=== PATIENT | male | born 1995 | race Caucasian/White ===

== ENCOUNTER 2016-10-30 19:15 | Emergency (ER) | payer SELFPAY ==
[2016-10-30] MEDS ORDERED: Bacitracin Zinc 1 Packet ONE (20:11)
--- NOTE | 2016-10-30 21:18 | ERRECORD ---
[facility] EMERGENCY RECORD HPI LACERATION (19:26 [facility]) CHIEF COMPLAINT: Patient presents for evaluation of laceration to forearm, on the right, 2.6-4.0cm in length, through subcutaneous fascia, Foreign body present. HISTORIAN: History provided by patient, 21M presents after he punched a glass door and lacerated his right anterior forearm. Denies numbness or tingling distal to the injury. Denies hand pain. Last tetanus last year. MECHANISM OF INJURY: Known mechanism, Mechanism of injury: Cut or punctured by, glass, accidentally. LOCATION: Symptoms are localized. QUALITY: Laceration quality straight, Pain is sharp in nature. TIME COURSE: Sudden onset of symptoms, There has been no change in the patient's symptoms over time. ASSOCIATED WITH: Associated with bleeding, venous. RELIEVED BY: Patient's condition relieved by nothing because patient has not tried anything for relief. TETANUS: Tetanus status up to date. ROS (19:41 [facility]) CONSTITUTIONAL: Negative constitutional review of systems, Historian denies chills, denies fever. EYES: Negative eye review of systems, Historian denies eye pain, denies eye discharge, denies vision changes. ENT: Negative ears, nose, throat review of systems, Historian denies rhinorrhea, denies sore throat. CARDIOVASCULAR: Negative cardiovascular review of systems, Historian denies chest pain, denies palpitations. RESPIRATORY: Negative respiratory review of systems, Historian denies cough, denies shortness of breath. GI: Negative gastrointestinal review of systems, Historian denies abdominal pain, denies constipation, denies diarrhea, denies nausea, denies vomiting. GENITOURINARY MALE: Negative genitourinary review of systems, Historian denies dysuria, denies hematuria. MUSCULOSKELETAL: Negative musculoskeletal review of systems, Historian denies back pain, denies fall, denies injury, denies neck pain. SKIN: laceration right forearm. NEUROLOGIC: Negative neurologic review of systems, Historian denies headache. HEMO/LYMPHATIC: Normal hematologic/lymphatic system review, Historian denies abnormal blood clotting. PAST MEDICAL HISTORY (19:40 [facility]) MEDICAL HISTORY: No past medical history, No past medical history, Flu vaccine not up to date, Tetanus immunization up to date, Pneumococcal vaccine not up to date. REVIEWED 10/30/16. MALE SURGICAL HISTORY: Patient has no surgical history. REVIEWED 10/30/16. &a-1R&a+25V*p+0X*[id number]*c202B*c15G*c2P*p-0X&a-25V&a+1R Name: Madisyn Daly : 1995 M21 MedRec: [id number] AcctNum: [id number] Prepared: FriOct 30, 2016 20:39 by Interface Page 1 of 3 pMD [facility] EMERGENCY RECORD PSYCHIATRIC HISTORY: Notes: NO PREVIOUS HX. SOCIAL HISTORY: Patient denies alcohol use, Patient denies drug use, Patient currently uses tobacco, smokes cigarettes, daily, Patient has smoked for 10 years, Patient smokes 1/2 packs per day. REVIEWED 10/30/16. KNOWN ALLERGIES No Known Allergies (Unconfirmed) No Known Drug Allergies CURRENT MEDICATIONS No recorded medications VITAL SIGNS VITAL SIGNS: BP: 144/93, Pulse: 112, Resp: 20, Pain: 6, O2 sat: 99 on Room Air, Time: 10/30/2016 19:21. (19:21 MV[facility]) Temp: 98.1 (Oral), Time: 10/30/2016 19:23. (19:23 [facility]) PHYSICAL EXAM (19:41 [facility]) CONSTITUTIONAL: Vital signs reviewed, Patient afebrile, Pulse normal, Blood pressure normal, Respiratory rate normal, Patient appears non toxic, Patient appears pain free, Patient alert and oriented to person, place and time. HEAD: Head exam normal, Head exam included findings of head atraumatic, normocephalic. EYES: Eye exam normal, Eye exam included findings of eyelids normal to inspection, Pupils equally round and reactive to light, Extraocular muscles intact, no nystagmus. ENT: ENT exam normal, Ear exam normal, external ear normal, tympanic membranes normal, no bleeding, Pharynx exam normal, Uvula exam normal, Tonsil exam normal, Mouth exam normal, mucous membranes moist, teeth normal. NECK: Neck exam normal, Neck exam included findings of normal range of motion, Trachea midline, no meningeal signs, no cervical adenopathy, no tenderness. RESPIRATORY CHEST: Respiratory and chest exam normal, Respiratory exam included findings of no respiratory distress, Breath sounds clear. CARDIOVASCULAR: Cardiovascular assessment normal, Cardiovascular exam included findings of heart rate regular rate and rhythm, Heart sounds normal. ABDOMEN MALE: Abdominal exam included findings of abdomen nontender, Bowel sounds normal, no distension, no mass, no pulsatile masses, no peritoneal signs, no rigidity, no guarding, no rebound, Rovsing's sign absent. BACK: Back exam normal, Back exam included findings of normal inspection, range of motion normal, no tenderness. UPPER EXTREMITY: Upper extremity exam normal, Upper extremity exam included findings of inspection normal, Range of motion normal, Motor strength normal, Sensation intact, Radial pulse normal. &a-1R&a+25V*p+0X*w0258G*c202B*c15G*c2P*p-0X&a-25V&a+1R Name: Madisyn Daly : 1995 M21 MedRec: [id number] AcctNum: [id number] Prepared: FriOct 30, 2016 20:39 by Interface Page 2 of 3 pMD [facility] EMERGENCY RECORD LOWER EXTREMITY: Lower extremity exam normal, Lower extremity exam included findings of inspection normal, Range of motion normal, Motor strength normal, Sensation intact, Posterior tibial pulse normal, Pedal pulse normal. NEURO: Neuro exam normal, Neuro exam findings include patient oriented to person, place and time, Speech normal, Gait normal. SKIN: Skin exam normal, Skin exam included findings of skin warm, dry, and normal in color, no rash, right anterior forearm has 3.5cm full thickness skin laceration with 3 smaller wounds less than 0.5cm. No arterial injury, oozing blood.Neurovascularly intact distally. PSYCHIATRIC: Psychiatric exam normal, Normal affect. DOCTOR NOTES (20:15 [facility]) TEXT: Patient presented with forearm laceration to right arm. Tolerated repair well. possible foreign body on xray, unable to find on local wound exploration. Patient is asymptomatic, appropriate for outpatient management and follow up. PATIENT STATUS: Patient has improved since arrival to emergency department. PATIENT PLAN: The patient will be discharged, The patient will follow up with primary care physician. DATA REVIEWED: Xray data reviewed. PROBLEM LIST No recorded problems DIAGNOSIS (20:13 [facility]) FINAL: PRIMARY: laceration forearm. PRESCRIPTION No recorded prescriptions DISPOSITION PATIENT: Disposition Type: Discharge, Disposition: *Discharge Home. (20:13 [facility]) Patient left the department. (20:32 [facility]) Zimmer: ROMY=MD Cate, Patrick MVIL=CAMILLE Amaya, Sarah &a-1R&a+25V*p+0X*[id number]*c202B*c15G*c2P*p-0X&a-25V&a+1R Name: Madisyn Daly : 1995 M21 MedRec: [id number] AcctNum: [id number] Prepared: FriOct 30, 2016 20:39 by Interface Page 3 of 3 pMD MTDD
--- NOTE | 2016-10-30 21:20 | PICIS ---
[facility] EMERGENCY RECORD TRIAGE (19:23 [facility]) TRIAGE NOTES: C/O LAC TO RIGHT ARM AFTER PUNCHING A GLASS DOOR. UTD ON TETANUS. (19:23 [facility]) PATIENT: NAME: Madisyn Daly, AGE: 21, GENDER: male, : Fri1995, TIME OF GREET: FriOct 30, 2016 19:15, PREFERRED LANGUAGE: Cymro, ETHNICITY: Not or , ECODE BILLING MAP: [facility], SSN: [id number], Zip Code: [address], KG WEIGHT: 65.77, HEIGHT/LENGTH: 180.34cm, BMI: 20.22, PHONE: , , , PERSON ID: [id number], PAYMENT: [employer] Self Pay, PCP: DO GONSALES KRISTEL. (19:23 [facility]) COMPLAINT: LACERATION TO RIGHT ARM. (19:23 [facility]) ADMISSION: URGENCY: 4 Non Urgent, ADMISSION SOURCE: Home, TRANSPORT: CAR, BED: ER -03. (19:23 [facility]) ASSESSMENT: Assessment: C/O RIGHT ARM LACERATION AFTER PUNCHING GLASS DOOR. TETANUS UTD. BLEEDING CONTROLLED., Symptoms began 10/30/2016 19:38, Symptoms began 30 min ago. (19:40 [facility]) PAIN: Patient complains of pain described as, aching, Location RIGHT ARM, Pain is constant, No aggravating factors, No relieving factors. (19:40 [facility]) IMMUNIZATIONS: Flu vaccine not up to date, Tetanus immunization up to date, Pneumococcal vaccine not up to date. (19:40 [facility]) SIRS SCORING: Heart Rate 110-139 (2), Temp range 96.8-101.1 (0), respiratory rate 12-24 (0), Mental Status altered: no (0), Total SIRS Score 2. (19:40 [facility]) TREATMENTS IN PROGRESS: Bandaging, Bulky dressing in place to: RIGHT FOREARM 2INCH LAC., Bleeding controlled with bandage. (20:10 [facility]) PROVIDERS: TRIAGE NURSE: Sarah Amaya RN. (19:23 [facility]) VITAL SIGNS: BP 144/93, Pulse 112, Resp 20, Pain 6, O2 Sat 99, on Room Air, Time 10/30/2016 19:21. (19:21 [facility]) Temp 98.1, (Oral), Time 10/30/2016 19:23. (19:23 [facility]) PREVIOUS VISIT ALLERGIES: No Known Drug Allergies. (19:23 [facility]) No Known Drug Allergies. (19:40 [facility]) KNOWN ALLERGIES No Known Allergies (Unconfirmed) No Known Drug Allergies CURRENT MEDICATIONS No recorded medications VITAL SIGNS VITAL SIGNS: BP: 144/93, Pulse: 112, Resp: 20, Pain: 6, O2 sat: 99 on Room Air, Time: 10/30/2016 19:21. (19:21 [facility]) Temp: 98.1 (Oral), Time: 10/30/2016 19:23. (19:23 [facility]) NURSING ASSESSMENT: EXTREMITY UPPER (19:40 [facility]) &a-1R&a+25V*p+0X*u9937O*c202B*c15G*c2P*p-0X&a-25V&a+1R Name: Madisyn Daly Jordin : 1995 M21 MedRec: [id number] AcctNum: [id number] Prepared: FriOct 30, 2016 20:45 by Interface Page 1 of 6 pMD [facility] EMERGENCY RECORD CONSTITUTIONAL: Patient arrives ambulatory, Gait steady, History obtained from patient, Patient appears comfortable, Patient cooperative, Patient alert, Oriented to person, place and time, Skin warm, Skin dry, Skin normal in color, Mucous membranes pink, Mucous membranes moist, Patient is well-groomed, Patient complains of RIGHT ARM LACERATION, PUNCHED A GLASS DOOR. TETANUS UTD. DID NOT TAKE ANY MEDS FOR PAIN. PAIN: burning pain, to the right forearm, Onset of pain 10/30/2016 19:45, constant, on a scale 0-10 patient rates pain as 6, Pain exacerbated by nothing, Nothing has been tried to alleviate the pain. RIGHT UPPER EXTREMITY: Right upper extremity assessment findings include capillary refill less than 2 seconds, Skin color normal to hand, Skin temperature to hand warm, Distal sensation intact, Muscle tone normal, muscle strength 5, +1 edema present, radial pulse is +4, brachial pulse is +4, Inspection findings include laceration, to FOREARM, bleeding controlled. SAFETY: Side rails up, Cart/Stretcher in lowest position, Family at bedside, Call light within reach, Hospital ID band on. NURSING PROCEDURE: DISCHARGE NOTE (20:19 [facility]) DISCHARGE: Patient discharged to home, ambulating without assistance, family driving, accompanied by //partner, Summary of Care printed/ provided, Patient requested and was provided an electronic copy of Discharge Instructions, Transition record given to patient, Discharge instructions given to patient, Above person(s) verbalized understanding of discharge instructions and follow-up care. BELONGINGS: Belongings and valuables with patient at time of discharge include:. NURSING PROCEDURE: WOUND CARE (20:10 MVIL) PATIENT IDENTIFIER: Patient actively involved in identification process, Patient's identity verified by patient stating name, Patient's identity verified by hospital ID bracelet. TIMEOUT: Prior to procedure, correct patient verified by, Correct procedure verified, Correct site verified, Correct equipment utilized, Timeout not performed due to emergent nature of procedure, Physician performing procedure Dr. DR. PEREZ. WOUND CARE: Wound care indicated for wound debridement and cleansing, Wound care indicated for preparing wound for repair, Wound care indicated to promote healing, Wound site: RIGHT FOREARM, Cause of wound: PUNCHED GLASS DOOR, Local infiltration with, 1% lidocaine without epinephrine, 10 mL used, Wound irrigated with 250 mL of normal saline, Wound cleansed with normal saline, Wound repaired with sutures, by DR. PEREZ, using 2 packs of suture, PROLENE 5.0, Last tetanus shot received less than 5 years ago. FOLLOW-UP: After procedure, on a scale 0-10 patient rates pain as 6, After procedure, capillary refill less than 2 seconds, After procedure, distal circulation intact, After procedure, &a-1R&a+25V*p+0X*[id number]*c202B*c15G*c2P*p-0X&a-25V&a+1R Name: Madisyn Daly : 1995 M21 MedRec: [id number] AcctNum: [id number] Prepared: FriOct 30, 2016 20:45 by Interface Page 2 of 6 pMD [facility] EMERGENCY RECORD distal motor intact, After procedure, distal sensation intact, After procedure, distal pulses present. SAFETY: Side rails up, Cart/Stretcher in lowest position, Family at bedside, Call light within reach, Hospital ID band on. ORDER DETAILS Order Name: chart element #1, Status: Active, Time: 20:10 10/30/2016, User: System, - Ordered for: MD Perez Jason, - Entered by: CAMILLE Amaya, [facility] FriOct 30, 2016 20:10, - Quantity: 1, Order Name: chart element #4, Status: Active, Time: 20:10 10/30/2016, User: System, - Ordered for: MD Perez Jason, - Entered by: CAMILLE Amaya, [facility] FriOct 30, 2016 20:10, - Quantity: 1, Order Name: XR Forearm Rt 2 View STANDARD, Status: Active, Time: 19:25 10/30/2016, User: [employer], - Ordered for: MD Perez Jason, - Entered by: MD Perez Jason [facility] Oct 30, 2016 19:25, - Quantity: 1, Order Name: XR Forearm Rt 2 View STANDARD, Status: Active, Time: 19:34 10/30/2016, User: [employer], - Ordered for: MD Perez Jason, - Entered by: MD Perez Jason - [facility] Oct 30, 2016 19:34, - Quantity: 1. [facility] CHIEF COMPLAINT: Patient presents for evaluation of laceration to forearm, on the right, 2.6-4.0cm in length, through subcutaneous fascia, Foreign body present. HISTORIAN: History provided by patient, 21M presents after he punched a glass door and lacerated his right anterior forearm. Denies numbness or tingling distal to the injury. Denies hand pain. Last tetanus last year. MECHANISM OF INJURY: Known mechanism, Mechanism of injury: Cut or punctured by, glass, accidentally. LOCATION: Symptoms are localized. QUALITY: Laceration quality straight, Pain is sharp in nature. TIME COURSE: Sudden onset of symptoms, There has been no change in the patient's symptoms over time. ASSOCIATED WITH: Associated with bleeding, venous. RELIEVED BY: Patient's condition relieved by nothing because patient has not tried anything for relief. TETANUS: Tetanus status up to date. ROS (19:41 [facility]) CONSTITUTIONAL: Negative constitutional review of systems, Historian denies chills, denies fever. &a-1R&a+25V*p+0X*[id number]*c202B*c15G*c2P*p-0X&a-25V&a+1R Name: Madisyn Daly : 1995 M21 MedRec: [id number] AcctNum: [id number] Prepared: FriOct 30, 2016 20:45 by Interface Page 3 of 6 pMD [facility] EMERGENCY RECORD EYES: Negative eye review of systems, Historian denies eye pain, denies eye discharge, denies vision changes. ENT: Negative ears, nose, throat review of systems, Historian denies rhinorrhea, denies sore throat. CARDIOVASCULAR: Negative cardiovascular review of systems, Historian denies chest pain, denies palpitations. RESPIRATORY: Negative respiratory review of systems, Historian denies cough, denies shortness of breath. GI: Negative gastrointestinal review of systems, Historian denies abdominal pain, denies constipation, denies diarrhea, denies nausea, denies vomiting. GENITOURINARY MALE: Negative genitourinary review of systems, Historian denies dysuria, denies hematuria. MUSCULOSKELETAL: Negative musculoskeletal review of systems, Historian denies back pain, denies fall, denies injury, denies neck pain. SKIN: laceration right forearm. NEUROLOGIC: Negative neurologic review of systems, Historian denies headache. HEMO/LYMPHATIC: Normal hematologic/lymphatic system review, Historian denies abnormal blood clotting. PAST MEDICAL HISTORY (19:40 [facility]) MEDICAL HISTORY: No past medical history, No past medical history, Flu vaccine not up to date, Tetanus immunization up to date, Pneumococcal vaccine not up to date. REVIEWED 10/30/16. MALE SURGICAL HISTORY: Patient has no surgical history. REVIEWED 10/30/16. PSYCHIATRIC HISTORY: Notes: NO PREVIOUS HX. SOCIAL HISTORY: Patient denies alcohol use, Patient denies drug use, Patient currently uses tobacco, smokes cigarettes, daily, Patient has smoked for 10 years, Patient smokes 1/2 packs per day. REVIEWED 10/30/16. PHYSICAL EXAM (19:41 [facility]) CONSTITUTIONAL: Vital signs reviewed, Patient afebrile, Pulse normal, Blood pressure normal, Respiratory rate normal, Patient appears non toxic, Patient appears pain free, Patient alert and oriented to person, place and time. HEAD: Head exam normal, Head exam included findings of head atraumatic, normocephalic. EYES: Eye exam normal, Eye exam included findings of eyelids normal to inspection, Pupils equally round and reactive to light, Extraocular muscles intact, no nystagmus. ENT: ENT exam normal, Ear exam normal, external ear normal, tympanic membranes normal, no bleeding, Pharynx exam normal, Uvula exam normal, Tonsil exam normal, Mouth exam normal, mucous membranes moist, teeth normal. NECK: Neck exam normal, Neck exam included findings of normal range of motion, Trachea midline, no meningeal signs, no cervical &a-1R&a+25V*p+0X*p8550U*c202B*c15G*c2P*p-0X&a-25V&a+1R Name: Madisyn Daly : 1995 M21 MedRec: [id number] AcctNum: [id number] Prepared: FriOct 30, 2016 20:45 by Interface Page 4 of 6 pMD [facility] EMERGENCY RECORD adenopathy, no tenderness. RESPIRATORY CHEST: Respiratory and chest exam normal, Respiratory exam included findings of no respiratory distress, Breath sounds clear. CARDIOVASCULAR: Cardiovascular assessment normal, Cardiovascular exam included findings of heart rate regular rate and rhythm, Heart sounds normal. ABDOMEN MALE: Abdominal exam included findings of abdomen nontender, Bowel sounds normal, no distension, no mass, no pulsatile masses, no peritoneal signs, no rigidity, no guarding, no rebound, Rovsing's sign absent. BACK: Back exam normal, Back exam included findings of normal inspection, range of motion normal, no tenderness. UPPER EXTREMITY: Upper extremity exam normal, Upper extremity exam included findings of inspection normal, Range of motion normal, Motor strength normal, Sensation intact, Radial pulse normal. LOWER EXTREMITY: Lower extremity exam normal, Lower extremity exam included findings of inspection normal, Range of motion normal, Motor strength normal, Sensation intact, Posterior tibial pulse normal, Pedal pulse normal. NEURO: Neuro exam normal, Neuro exam findings include patient oriented to person, place and time, Speech normal, Gait normal. SKIN: Skin exam normal, Skin exam included findings of skin warm, dry, and normal in color, no rash, right anterior forearm has 3.5cm full thickness skin laceration with 3 smaller wounds less than 0.5cm. No arterial injury, oozing blood.Neurovascularly intact distally. PSYCHIATRIC: Psychiatric exam normal, Normal affect. EVENTS TRANSFER: Triage to Emergency Emergency Room -03. (FriOct 30, 2016 19:23 MVIL) Removed from Emergency Emergency Room -03. (20:32 MVIL) DOCTOR NOTES (20:15 JJA) TEXT: Patient presented with forearm laceration to right arm. Tolerated repair well. possible foreign body on xray, unable to find on local wound exploration. Patient is asymptomatic, appropriate for outpatient management and follow up. PATIENT STATUS: Patient has improved since arrival to emergency department. PATIENT PLAN: The patient will be discharged, The patient will follow up with primary care physician. DATA REVIEWED: Xray data reviewed. [facility] REPAIR: Side and/or site verified, Wound close to neurovascular bundle, No pulse deficit, Capillary refill less than 2 seconds, Distal motor intact, Distal sensation intact, No signs of compartment syndrome, Local infiltration with, Wound &a-1R&a+25V*p+0X*y1807L*c202B*c15G*c2P*p-0X&a-25V&a+1R Name: Madisyn Daly : 1995 M21 MedRec: [id number] AcctNum: [id number] Prepared: FriOct 30, 2016 20:45 by Interface Page 5 of 6 pMD [facility] EMERGENCY RECORD irrigated with normal saline, Simple repair of laceration, to the extremity, forearm, 8 single interrupted sutures to main laceration with 5-0 prolene. 1 single interrupted suture with 5-0 prolene in two smaller locations. PROBLEM LIST No recorded problems DIAGNOSIS (20:13 [facility]) FINAL: PRIMARY: laceration forearm. DISPOSITION PATIENT: Disposition Type: Discharge, Disposition: *Discharge Home. (20:13 JJA) Patient left the department. (20:32 MVIL) [facility] DISCHARGE: EXTREMITY LACERATION. FOLLOWUP: DO GONSALES KRISTEL, [facility], [address] [place] [id number], [id number]. SPECIAL: Keep it clean. Watch for worsening redness or whitish discharge. If you have worsening pain, return to the ED. See your PMD for wound check/suture removal in 10 days. PRESCRIPTION No recorded prescriptions IMAGING (20:17 MVIL) *DISCHARGE INSTRUCTIONS RECEIPT: Image captured from scanner. *SUPPLY CHARGE SHEET: Image captured from scanner. [facility] DIG[facility] SIGNATURE: MD Perez Jason. Zimmer: DAWSON=MD Perez Jason MVIL=CAMILLE Amaya, [facility] &a-1R&a+25V*p+0X*v2714R*c202B*c15G*c2P*p-0X&a-25V&a+1R Name: Donn Dalytri Brenner : 1995 M21 MedRec: [id number] AcctNum: [id number] Prepared: FriOct 30, 2016 20:45 by Interface Page 6 of 6 pMD MTDD
--- NOTE | 2016-10-30 23:56 | RAD ---
RIGHT FOREARM TWO VIEWS 10/30/16 No fracture was seen. The radius and ulna appear intact. I am assuming the laceration is on the anterior aspect of the mid forearm. Just beneath the skin deepti face, there is a questionable area of increased density that could be a small semiopaque foreign bod y, but the finding is not definite. It has been marked on the image for correlation with the patient 's wound. IMPRESSION: Equivocal finding in the very superficial soft tissues of the anterior forearm. Code T POS: HOME
== END 2016-10-30 20:15 | disposition home or self-care (01) ==
LOC: BURERS 19:15
DX: S51.811A Laceration without foreign body of right forearm, initial encounter (principal); F17.210 Nicotine dependence, cigarettes, uncomplicated; W25.XXXA Contact with sharp glass, initial encounter
CPT/HCPCS: 12002; 99283

== ENCOUNTER 2017-02-01 14:29 | Emergency (ER) | payer SELFPAY ==
[2017-02-01] MEDS ORDERED: Tetracaine HCl 0.5% Ophth Soln 2 ML Bottle ONE (14:40)
[2017-02-01] MEDS ORDERED: Fluorescein Opthalmic Strip ONE (14:40)
[2017-02-01] MEDS ORDERED: diphenhydrAMINE HCl 25 MG CAP ONE (15:19)
== END 2017-02-01 15:22 | disposition home or self-care (01) ==
LOC: BURERS 14:29
DX: S05.01XA Injury of conjunctiva and corneal abrasion without foreign body, right eye, initial encounter (principal); F17.210 Nicotine dependence, cigarettes, uncomplicated; X58.XXXA Exposure to other specified factors, initial encounter
CPT/HCPCS: 99283

== ENCOUNTER 2019-01-26 08:51 | Emergency (ER) | payer SELFPAY | END 2019-01-26 09:15 | disposition home or self-care (01) | LOC: BURERS 08:51 | DX: J35.8 Other chronic diseases of tonsils and adenoids (principal); F17.210 Nicotine dependence, cigarettes, uncomplicated | CPT/HCPCS: 99281 ==

== ENCOUNTER 2019-07-25 22:54 | Emergency (ER) | payer SELFPAY | END 2019-07-25 23:10 | disposition home or self-care (01) | LOC: BURERS 22:54 | DX: K02.9 Dental caries, unspecified (principal); F17.210 Nicotine dependence, cigarettes, uncomplicated; Z79.899 Other long term (current) drug therapy | CPT/HCPCS: 99281 ==

== ENCOUNTER 2021-01-15 02:25 | Emergency (ER) | payer OTHER, SELFPAY ==
[2021-01-15] MEDS ORDERED: Fluorescein Opthalmic Strip ONE (02:35)
[2021-01-15] MEDS ORDERED: Tetracaine 0.5% PF 4 ML BOT ONE (02:35)
[2021-01-15] MEDS ORDERED: Neomycin-Polymyxin-Hc 7.5 ML BOT ONE (02:47)
== END 2021-01-15 02:55 | disposition home or self-care (01) ==
LOC: BURERS 02:25
DX: S05.01XA Injury of conjunctiva and corneal abrasion without foreign body, right eye, initial encounter (principal); F17.210 Nicotine dependence, cigarettes, uncomplicated; W22.8XXA Striking against or struck by other objects, initial encounter
CPT/HCPCS: 99283

== ENCOUNTER 2021-01-15 16:55 | Emergency (ER) | payer SELFPAY ==
[2021-01-15] MEDS ORDERED: Cyclopentolate 1% Opth Drop 2 ML BOT ONE (17:08)
[2021-01-15] MEDS ORDERED: Ketorolac Tromethamine 30 MG/ML VIAL ONE (17:40)
[2021-01-15] MEDS ORDERED: Tetracaine 0.5% PF 4 ML BOT ONE (17:40)
== END 2021-01-15 18:13 | disposition home or self-care (01) ==
LOC: BURERS 16:55
DX: S05.01XA Injury of conjunctiva and corneal abrasion without foreign body, right eye, initial encounter (principal); H20.9 Unspecified iridocyclitis; F17.210 Nicotine dependence, cigarettes, uncomplicated; X58.XXXA Exposure to other specified factors, initial encounter
CPT/HCPCS: 96372; 99283; J1885

== ENCOUNTER 2022-08-27 22:05 | Emergency (ER) | payer SELFPAY | END 2022-08-28 00:43 | disposition home or self-care (01) | LOC: BURERS 22:05 | DX: T26.92XA Corrosion of left eye and adnexa, part unspecified, initial encounter (principal); T26.91XA Corrosion of right eye and adnexa, part unspecified, initial encounter; S01.21XA Laceration without foreign body of nose, initial encounter; F17.210 Nicotine dependence, cigarettes, uncomplicated; X58.XXXA Exposure to other specified factors, initial encounter | CPT/HCPCS: 12013 ==

== ENCOUNTER 2024-02-11 17:58 | Emergency (ER) | payer OTHER ==
[2024-02-11] MEDS ORDERED: Lidocaine 1% (PF) 30 ML VIAL ONE (18:08)
[2024-02-11] MEDS ORDERED: Cephalexin 250 MG CAP ONE (19:10)
== END 2024-02-11 19:17 | disposition home or self-care (01) ==
LOC: BURERS 17:58
DX: S61.412A Laceration without foreign body of left hand, initial encounter (principal); F17.290 Nicotine dependence, other tobacco product, uncomplicated; W26.8XXA Contact with other sharp object(s), not elsewhere classified, initial encounter; Y93.39 Activity, other involving climbing, rappelling and jumping off
CPT/HCPCS: 12001; J2001

== ENCOUNTER 2025-10-02 17:09 | Emergency (ER) | payer OTHER, SELFPAY ==
[2025-10-02] MEDS ORDERED: Fluorescein Opthalmic Strip ONE (17:16)
[2025-10-02] MEDS ORDERED: Tetracaine 0.5% PF 4 ML BOT ONE (18:26)
== END 2025-10-02 19:24 | disposition home or self-care (01) ==
LOC: BURERS 17:09
DX: S05.02XA Injury of conjunctiva and corneal abrasion without foreign body, left eye, initial encounter (principal); F17.290 Nicotine dependence, other tobacco product, uncomplicated; X58.XXXA Exposure to other specified factors, initial encounter
CPT/HCPCS: 99283